=== PATIENT | female | born 1965 | race Caucasian/White ===

== ENCOUNTER 2016-06-23 18:12 | Emergency (ER) | payer BC ==
[~2016-06-23] VITALS: Ht 154.9 cm; Wt 116.8 kg
[~2016-06-23 18:12] MED LIST: ADVAIR 100/501 DISK IH; ADVAIR 250/501 DISK; ALDACTONE50 MG PO; AMARYL2 MG PO; ASPIR 8181 M1 PO; BUSPAR10 MG PO; BUSPIRONE HCL10 MG PO; CHERATUSSIN AC473 ML PO; CLINDAMYCIN HC300 MG PO; COLACE100 MG PO; DOXYCYCLINE MO100 M1 PO; DUONEB 2.5-0.5 M3 ML AEROSOL; DUONEB 2.5-0.5 M3 ML IH; ELAVIL25 MG PO; FERGON324 MG PO; FERROUS SULFAT325 MG PO; FLEXERIL10 MG PO; FLUTICASONE PRO16 GM BOTH NARES; GLUCOPHAGE1000 MG PO; IRON325 M1 PO; LEVOFLOXACIN750 MG PO; LO-DOSE ASPIRIN81 M1 PO; LOPRESSOR; METAXALONE800 MG PO; METFORMIN HCL1000 M1 PO; METFORMIN HCL1000 MG PO; METOPROLOL TART25 MG PO; METOPROLOL TART50 MG PO; MULTIVITAMIN1 EAC2 PO; NAPROSYN250 MG PO; NAPROXEN500 MG PO; NEOMYCIN-POLYMY10 ML BOTH EARS; NEOMYCIN-POLYMYXIN-H; OMEPRAZOLE20 MG PO; OMEPRAZOLE40 M1 PO; PERCOCET 5/31 TABLET PO; PREDNISONE20 MG PO; PRILOSEC20 MG PO; PROZAC40 MG PO; SALINE NASAL SP45 ML BOTH NARES; SERTRALINE HCL100 MG PO; SPIRONOLACTONE50 MG PO; STOOL SOFTENER100 M1 PO; STOOL SOFTENER100 MG PO; TOPROL XL25 MG PO; TRI-SPRINTEC1 EACH PO; TYLENOL COLD H1 EAC5 PO; VENTOLIN HFA18 GM IH; ZOLOFT100 MG PO; ZYRTEC10 M2 PO
[2016-06-23 19:13] LABS: HEMATOCRIT 43.9 % (36.0-46.0); MCH 27.8 PG (29.0-34.0); MCV 84.3 FL (83-99); MEAN PLAT.VOLUME 11.3 uM^3 (9.5-12.4); PLATELET COUNT 193 K/uL (156-360); RBC DIS.WIDTH-CV 14.5 % (11.8-14.6); RBC DIS.WIDTH-SD 44.3 % (39-53); RED BLOOD COUNT 5.21 M/uL (3.80-5.20); WHITE BLOOD COUNT 8.4 K/uL (4.1-10.2)
[2016-06-23 19:22] LABS: CHLORIDE 104 mEq/L (99-109); POTASSIUM 4.3 mEq/L (3.7-5.4); SODIUM 136 mEq/L (136-147)
[2016-06-23 19:24] LABS: GLUCOSE 112 mg/dL (70-99)
[2016-06-23 19:25] LABS: ANION GAP 11 MEQ/L (2-14)
[2016-06-23 19:28] LABS: GFR ESTIMATE (CALCULATED) > 59 mL/min/
[2016-06-23 19:29] LABS: UREA NITROGEN (BUN) 8 mg/dL (9-23)
[2016-06-23 19:35] LABS: TROP-I INTERPRETATION NEGATIVE; TROPONIN-I < 0.01 ng/mL (0.0-0.30)
[2016-06-23] MEDS ORDERED: VALIUM5 MG PO (20:21)
[2016-06-23] MEDS ORDERED: NAPROSYN500 MG PO (20:21)
[2016-06-23] MEDS ORDERED: ULTRAM50 MG PO (20:21)
[2016-06-23 20:35] VITALS: BP 147/110
== END 2016-06-23 20:37 | disposition home or self-care (01) ==
LOC: EME 18:12
PROVIDERS: Physician Assistant
DX: S29.011A Strain of muscle and tendon of front wall of thorax, initial encounter (principal); E11.9 Type 2 diabetes mellitus without complications; K21.9 Gastro-esophageal reflux disease without esophagitis; Z86.14 Personal history of Methicillin resistant Staphylococcus aureus infection; Z79.84 Long term (current) use of oral hypoglycemic drugs; Z79.82 Long term (current) use of aspirin
CPT/HCPCS: 71020; 80048; 84484; 85027; 93005; 99281; 99285; J3010

== ENCOUNTER → 2016-07-06 | Outpatient (CLI) | payer BC ==
[~2016-07-06] VITALS: Ht 167.6 cm; Wt 120.6 kg
[~2016-07-06] MED LIST changes: +NAPROSYN500 MG PO; +ULTRAM50 MG PO; +VALIUM5 MG PO
[2016-07-06 09:36] LABS: POINT-OF-CARE METER ID UU13113694
== END | disposition home or self-care (01) ==
LOC: AMB 06-15 08:00
PROVIDERS: Internal Medicine
PROC: 0DB68ZX Excision of Stomach, Via Natural or Artificial Opening Endoscopic, Diagnostic (ICD-10-PCS; principal; 2016-07-06)
DX: K29.70 Gastritis, unspecified, without bleeding (principal); K21.9 Gastro-esophageal reflux disease without esophagitis; Z80.0 Family history of malignant neoplasm of digestive organs; E11.9 Type 2 diabetes mellitus without complications; E78.5 Hyperlipidemia, unspecified; E66.9 Obesity, unspecified; Z68.41 Body mass index [BMI] 40.0-44.9, adult; Z86.14 Personal history of Methicillin resistant Staphylococcus aureus infection; Z82.49 Family history of ischemic heart disease and other diseases of the circulatory system; Z82.5 Family history of asthma and other chronic lower respiratory diseases; Z80.8 Family history of malignant neoplasm of other organs or systems; Z88.0 Allergy status to penicillin; Z88.1 Allergy status to other antibiotic agents; Z88.5 Allergy status to narcotic agent; Z88.8 Allergy status to other drugs, medicaments and biological substances
CPT/HCPCS: 82948; 88305; 88342 TC; J2250

== ENCOUNTER → 2016-12-18 | Outpatient (CLI) | payer BC ==
[~2016-12-18] MED LIST changes: +DOXYCYCLINE HY100 M3 PO; +OCUFLOX 0.100 DROP/5 BOTH EYES; +PROAIR HFA8.5 GM IH
== END | disposition home or self-care (01) ==
LOC: CDC 11:16
DX: Z01.810 Encounter for preprocedural cardiovascular examination (principal)
CPT/HCPCS: 93000

== ENCOUNTER 2016-12-22 09:14 | Inpatient (IN) | payer BC ==
[~2016-12-22] VITALS: Ht 154.9 cm; Wt 115.9 kg
[~2016-12-22 09:14] MED LIST changes: -DOXYCYCLINE HY100 M3 PO; -OCUFLOX 0.100 DROP/5 BOTH EYES; -PROAIR HFA8.5 GM IH
[2016-12-22 10:17] LABS: EOSINOPHIL (%) 1.7 % (0-5); EOSINOPHIL COUNT 0.1 K/uL (0-0.3); HEMATOCRIT 43.6 % (36.0-46.0); IMMATURE GRANULOCYTE (%) 0.7 % (0.0-0.7); IMMATURE GRANULOCYTE COUNT 0.1 K/uL; LYMPHOCYTE COUNT 2.2 K/uL (1.0-2.8); MCH 27.6 PG (29.0-34.0); MCHC 32.8 G/DL (30.0-36.0); MEAN PLAT.VOLUME 11.8 uM^3 (9.5-12.4); MONOCYTE (%) 6.9 % (3-12); MONOCYTE COUNT 0.5 K/uL (0-0.8); NEUTROPHIL (%) 58.5 % (45-76); PLATELET COUNT 172 K/uL (156-360); RBC DIS.WIDTH-CV 14.2 % (11.8-14.6); RBC DIS.WIDTH-SD 42.9 % (39-53); RED BLOOD COUNT 5.19 M/uL (3.80-5.20); WHITE BLOOD COUNT 6.9 K/uL (4.1-10.2)
[2016-12-22 10:29] LABS: CHLORIDE 103 mEq/L (99-109); POTASSIUM 4.4 mEq/L (3.7-5.4); SODIUM 135 mEq/L (136-147)
[2016-12-22 10:30] LABS: GLUCOSE 209 mg/dL (70-99)
[2016-12-22 10:32] LABS: ANION GAP 14 MEQ/L (2-14)
[2016-12-22 10:34] LABS: GFR ESTIMATE (CALCULATED) > 59 mL/min/
[2016-12-22 10:35] LABS: UREA NITROGEN (BUN) 10 mg/dL (9-23)
[2016-12-22] MEDS ORDERED: BUSPAR10 MG PO (14:20)
[2016-12-22] MEDS ORDERED: DOXYCYCLINE HY100 M3 PO (14:23)
[2016-12-22] MEDS ORDERED: OCUFLOX 0.100 DROP/5 BOTH EYES (14:24)
[2016-12-22] MEDS ORDERED: DUONEB 2.5-0.5 M3 ML AEROSOL (14:25)
[2016-12-22] MEDS ORDERED: PROAIR HFA8.5 GM IH (14:25)
[2016-12-22 21:53] LABS: METH RESISTANT S AUREUS PCR POSITIVE (NEGATIVE)
[2016-12-22 22:11] LABS: PROBE CHECK PASS
[2016-12-22 22:39] LABS: POINT-OF-CARE METER ID UU13113725
[2016-12-23 00:09] VITALS: BP 160/94
[2016-12-23 05:54] LABS: HEMATOCRIT 39.6 % (36.0-46.0); MCH 27.7 PG (29.0-34.0); MCHC 32.6 G/DL (30.0-36.0); MEAN PLAT.VOLUME 11.4 uM^3 (9.5-12.4); PLATELET COUNT 167 K/uL (156-360); RBC DIS.WIDTH-CV 14.3 % (11.8-14.6); RBC DIS.WIDTH-SD 43.6 % (39-53); RED BLOOD COUNT 4.66 M/uL (3.80-5.20); WHITE BLOOD COUNT 8.3 K/uL (4.1-10.2)
[2016-12-23 06:26] LABS: ANION GAP 8 MEQ/L (2-14); CHLORIDE 102 MEQ/L (99-109); GFR ESTIMATE (CALCULATED) > 59 mL/min/; GLUCOSE 245 mg/dL (70-99); POTASSIUM 4.8 MEQ/L (3.7-5.4); SAMPLE HEMOLYSIS CHECK 1; SAMPLE ICTERIC CHECK 0; SAMPLE LIPEMIA CHECK 0; SODIUM 134 MEQ/L (136-147); UREA NITROGEN (BUN) 15 mg/dL (9-23)
[2016-12-23 07:45] VITALS: BP 161/89
[2016-12-23 11:47] LABS: POINT-OF-CARE METER ID UU13113725
[2016-12-23 15:35] VITALS: BP 130/80
[2016-12-23 16:35] LABS: POINT-OF-CARE METER ID UU13113725
[2016-12-23 23:49] VITALS: BP 142/79
[2016-12-24 03:43] LABS: HEMATOCRIT 38.7 % (36.0-46.0); MCHC 33.1 G/DL (30.0-36.0); MCV 84.7 FL (83-99); MEAN PLAT.VOLUME 11.5 uM^3 (9.5-12.4); PLATELET COUNT 169 K/uL (156-360); RBC DIS.WIDTH-CV 14.5 % (11.8-14.6); RBC DIS.WIDTH-SD 43.8 % (39-53); RED BLOOD COUNT 4.57 M/uL (3.80-5.20); WHITE BLOOD COUNT 7.8 K/uL (4.1-10.2)
[2016-12-24 03:57] LABS: CHLORIDE 107 mEq/L (99-109); POTASSIUM 4.6 mEq/L (3.7-5.4); SODIUM 139 mEq/L (136-147)
[2016-12-24 03:59] LABS: GLUCOSE 179 mg/dL (70-99)
[2016-12-24 04:01] LABS: ANION GAP 9 MEQ/L (2-14)
[2016-12-24 04:03] LABS: GFR ESTIMATE (CALCULATED) > 59 mL/min/
[2016-12-24 04:04] LABS: UREA NITROGEN (BUN) 13 mg/dL (9-23)
[2016-12-24 06:38] LABS: POINT-OF-CARE METER ID UU13113725
[2016-12-24 08:43] VITALS: BP 164/97
[2016-12-24 15:32] VITALS: BP 135/88
[2016-12-24 16:15] LABS: POINT-OF-CARE METER ID UU13113725
[2016-12-24] MEDS ORDERED: DOXYCYCLINE HY100 M3 PO (20:40)
[2016-12-24] MEDS ORDERED: SULFACETAMIDE S15 ML BOTH EYES (20:44)
[2016-12-25 00:41] VITALS: BP 120/61
[2016-12-25 05:55] LABS: POINT-OF-CARE METER ID UU13113725
[2016-12-25 07:48] VITALS: BP 149/68
== END 2016-12-25 17:10 | disposition home or self-care (01) | DRG 603 ==
LOC: EME 09:14 → EDOF 13:34 → 5EAST 13:34 → ENRESERV 13:35 → 5EAST 15:47
PROVIDERS: Emergency Medicine; Internal Medicine
DX: L03.213 Periorbital cellulitis (principal); H00.034 Abscess of left upper eyelid; H10.89 Other conjunctivitis; H01.002 Unspecified blepharitis right lower eyelid; H01.005 Unspecified blepharitis left lower eyelid; L03.211 Cellulitis of face; E11.9 Type 2 diabetes mellitus without complications; F32.9 Major depressive disorder, single episode, unspecified; F41.9 Anxiety disorder, unspecified; J45.909 Unspecified asthma, uncomplicated; G43.909 Migraine, unspecified, not intractable, without status migrainosus; I10 Essential (primary) hypertension; K21.9 Gastro-esophageal reflux disease without esophagitis; E66.9 Obesity, unspecified; Z68.42 Body mass index [BMI] 45.0-49.9, adult; Z79.4 Long term (current) use of insulin; Z79.84 Long term (current) use of oral hypoglycemic drugs; Z88.0 Allergy status to penicillin; Z86.14 Personal history of Methicillin resistant Staphylococcus aureus infection; Z79.82 Long term (current) use of aspirin
CPT/HCPCS: 70487; 80048; 80202; 82948; 83605; 85025; 85027; 87040; 87641; 99281; 99285; J1200; J1650; J1815; J1885; J2270; J2930; J3370; J7030; J7040; J7120

== ENCOUNTER 2017-03-07 10:12 | Emergency (ER) | payer BC ==
[~2017-03-07] VITALS: Ht 154.9 cm; Wt 114.3 kg
[~2017-03-07 10:12] MED LIST changes: +DOXYCYCLINE HY100 M3 PO; +JANUVIA25 MG PO; +LISINOPRIL5 MG PO; +OCUFLOX 0.100 DROP/5 BOTH EYES; +PROAIR HFA8.5 GM IH; +SULFACETAMIDE S15 ML BOTH EYES
[2017-03-07 10:58] LABS: EOSINOPHIL (%) 1.6 % (0-5); EOSINOPHIL COUNT 0.1 K/uL (0-0.3); HEMATOCRIT 44.5 % (36.0-46.0); IMMATURE GRANULOCYTE (%) 0.6 % (0.0-0.7); INSTRUMENT ABS NEUTROPHIL CT 4.4 K/uL; LYMPHOCYTE COUNT 1.9 K/uL (1.0-2.8); MCH 28.4 PG (29.0-34.0); MCHC 32.8 G/DL (30.0-36.0); MCV 86.6 FL (83-99); MEAN PLAT.VOLUME 12.1 uM^3 (9.5-12.4); MONOCYTE (%) 7.9 % (3-12); MONOCYTE COUNT 0.6 K/uL (0-0.8); NEUTROPHIL (%) 62.3 % (45-76); NEUTROPHIL COUNT 4.4 K/uL (1.8-6.4); PLATELET COUNT 164 K/uL (156-360); RBC DIS.WIDTH-CV 13.9 % (11.8-14.6); RBC DIS.WIDTH-SD 44.1 % (39-53); RED BLOOD COUNT 5.14 M/uL (3.80-5.20)
[2017-03-07 11:06] LABS: CHLORIDE 104 mEq/L (99-109); POTASSIUM 4.3 mEq/L (3.7-5.4); SODIUM 137 mEq/L (136-147)
[2017-03-07 11:08] LABS: GLUCOSE 228 mg/dL (70-99)
[2017-03-07 11:09] LABS: ANION GAP 12 MEQ/L (2-14)
[2017-03-07 11:10] LABS: TOTAL BILIRUBIN 0.6 mg/dL (0.0-1.0)
[2017-03-07 11:11] LABS: ALKALINE PHOSPHATASE 108 IU/L (3-129)
[2017-03-07 11:12] LABS: GFR ESTIMATE (CALCULATED) > 59 mL/min/
[2017-03-07 11:13] LABS: UREA NITROGEN (BUN) 12 mg/dL (9-23)
[2017-03-07] MEDS ORDERED: BACTRIM,SEPT1 TABLET PO (11:37)
[2017-03-07] MEDS ORDERED: AVIDOXY100 MG PO (11:37)
[2017-03-07] MEDS ORDERED: ULTRAM50 MG PO (11:38)
[2017-03-07 13:18] VITALS: BP 126/85
== END 2017-03-07 13:19 | disposition home or self-care (01) ==
LOC: EME 10:12
PROVIDERS: Emergency Medicine
PROC: 089 Eye, Drainage (ICD-10-PCS; principal; 2017-03-07)
DX: H00.034 Abscess of left upper eyelid (principal); E11.9 Type 2 diabetes mellitus without complications; K21.9 Gastro-esophageal reflux disease without esophagitis; F41.9 Anxiety disorder, unspecified; F32.9 Major depressive disorder, single episode, unspecified; Z86.14 Personal history of Methicillin resistant Staphylococcus aureus infection; Z79.84 Long term (current) use of oral hypoglycemic drugs; Z79.82 Long term (current) use of aspirin; Z88.5 Allergy status to narcotic agent; Z88.1 Allergy status to other antibiotic agents; Z88.0 Allergy status to penicillin; Z88.8 Allergy status to other drugs, medicaments and biological substances
CPT/HCPCS: 80053; 85025; 99281; 99284; J2405; J3010; J3370; J7030

== ENCOUNTER 2017-03-12 20:40 | Inpatient (IN) | payer OTHER ==
[~2017-03-12] VITALS: Ht 154.9 cm; Wt 114.3 kg
[~2017-03-12 20:40] MED LIST changes: +AVIDOXY100 MG PO; +BACTRIM,SEPT1 TABLET PO
[2017-03-12] MEDS ORDERED: LIPITOR40 MG PO (21:40)
[2017-03-12] MEDS ORDERED: AMARYL2 MG PO (21:48)
[2017-03-12 21:52] LABS: BASOPHIL COUNT 0.1 K/uL (0-0.1); EOSINOPHIL (%) 1.7 % (0-5); EOSINOPHIL COUNT 0.2 K/uL (0-0.3); IMMATURE GRANULOCYTE (%) 0.5 % (0.0-0.7); IMMATURE GRANULOCYTE COUNT 0.1 K/uL; INSTRUMENT ABS NEUTROPHIL CT 6.4 K/uL; LYMPHOCYTE COUNT 2.6 K/uL (1.0-2.8); MCH 28.9 PG (29.0-34.0); MCHC 34.2 G/DL (30.0-36.0); MCV 84.6 FL (83-99); MEAN PLAT.VOLUME 11.6 uM^3 (9.5-12.4); MONOCYTE (%) 5.9 % (3-12); MONOCYTE COUNT 0.6 K/uL (0-0.8); NEUTROPHIL COUNT 6.4 K/uL (1.8-6.4); PLATELET COUNT 202 K/uL (156-360); RBC DIS.WIDTH-CV 13.6 % (11.8-14.6); RBC DIS.WIDTH-SD 42.1 % (39-53); RED BLOOD COUNT 5.08 M/uL (3.80-5.20); WHITE BLOOD COUNT 9.8 K/uL (4.1-10.2)
[2017-03-12 22:00] LABS: CHLORIDE 106 mEq/L (99-109); INTERNAL CONTROL VALID? YES; POTASSIUM 3.9 mEq/L (3.7-5.4); SODIUM 138 mEq/L (136-147)
[2017-03-12 22:02] LABS: GLUCOSE 185 mg/dL (70-99)
[2017-03-12 22:03] LABS: ANION GAP 11 MEQ/L (2-14)
[2017-03-12 22:05] LABS: AMPHETAMINE NEGATIVE (500 ng/mL); BARBITURATES NEGATIVE (200 ng/mL); BENZODIAZEPINES NEGATIVE (150 ng/mL); COCAINE NEGATIVE (150 ng/mL); GFR ESTIMATE (CALCULATED) 56 mL/min/; INTERNAL CONTROLS VALID? YES; METHADONE NEGATIVE (200 ng/mL); METHAMPHETAMINE NEGATIVE (500 ng/mL); OPIATES (MORPHINE) NEGATIVE (100 ng/mL); OXYCODONE NEGATIVE (100 ng/mL); PHENCYCLIDINE NEGATIVE (25 ng/mL); PROPOXYPHENE NEGATIVE (300 ng/mL); SERUM ETHYL ALCOHOL < 10 mg/dL; THC CANNABINOIDS NEGATIVE (50 ng/mL); TRICYCLIC ANTIDEPRESSANTS NEGATIVE (300 ng/mL)
[2017-03-12 22:07] LABS: UREA NITROGEN (BUN) 13 mg/dL (9-23)
[2017-03-12 22:09] LABS: SALICYLATE < 5.0 MG/DL (15-30)
[2017-03-13 10:47] VITALS: BP 130/78
[2017-03-13 12:16] LABS: POINT-OF-CARE METER ID UU14188576; POINT-OF-CARE USER ID BHSTSA
[2017-03-13 15:38] VITALS: BP 137/74
[2017-03-13 16:43] LABS: POINT-OF-CARE METER ID UU14188576; POINT-OF-CARE USER ID BHSMEW
[2017-03-13 20:29] LABS: POINT-OF-CARE METER ID UU14188576; POINT-OF-CARE USER ID BHSMEW
[2017-03-13 20:51] LABS: POINT-OF-CARE METER ID UU14188576; POINT-OF-CARE USER ID BHSMEW
[2017-03-14 02:13] LABS: POINT-OF-CARE METER ID UU14188576
[2017-03-14 06:18] LABS: POINT-OF-CARE METER ID UU14188576
[2017-03-14 07:54] VITALS: BP 139/67
[2017-03-14 12:27] LABS: POINT-OF-CARE METER ID UU14188576; POINT-OF-CARE USER ID BHSTSA
[2017-03-14 16:01] VITALS: BP 110/60
[2017-03-14 16:51] LABS: POINT-OF-CARE METER ID UU14188576; POINT-OF-CARE USER ID BHSMEW
[2017-03-14 21:57] LABS: POINT-OF-CARE METER ID UU14188576; POINT-OF-CARE USER ID BHSMEW
[2017-03-15 07:51] VITALS: BP 124/78
[2017-03-15 08:09] LABS: POINT-OF-CARE METER ID UU13113702; POINT-OF-CARE USER ID BHSTSA
[2017-03-15] MEDS ORDERED: FLUOXETINE HCL20 MG PO (10:22)
== END 2017-03-15 11:58 | disposition home or self-care (01) | DRG 880 ==
LOC: EME 20:40 → 1WEST 03-13 08:34 → EDOF 03-13 08:34 → ENRESERV 03-13 10:10 → 1WEST 03-13 10:28
PROVIDERS: Emergency Medicine; Psychiatry & Neurology Psychiatry
DX: F44.1 Dissociative fugue (principal); Z68.42 Body mass index [BMI] 45.0-49.9, adult; R45.851 Suicidal ideations; F34.1 Dysthymic disorder; E11.9 Type 2 diabetes mellitus without complications; E78.00 Pure hypercholesterolemia, unspecified; F29 Unspecified psychosis not due to a substance or known physiological condition; H00.034 Abscess of left upper eyelid; I10 Essential (primary) hypertension; K21.9 Gastro-esophageal reflux disease without esophagitis; X78.8XXA Intentional self-harm by other sharp object, initial encounter; R45.850 Homicidal ideations; S51.812A Laceration without foreign body of left forearm, initial encounter; G43.909 Migraine, unspecified, not intractable, without status migrainosus; E66.01 Morbid (severe) obesity due to excess calories; Z86.14 Personal history of Methicillin resistant Staphylococcus aureus infection; Z79.84 Long term (current) use of oral hypoglycemic drugs; Z88.0 Allergy status to penicillin; Z88.5 Allergy status to narcotic agent; Z88.6 Allergy status to analgesic agent; Z88.1 Allergy status to other antibiotic agents; Y92.009 Unspecified place in unspecified non-institutional (private) residence as the place of occurrence of the external cause
CPT/HCPCS: 80048; 82948; 84703; 85025; 90837; 94640; 94640 76; 97150 GO; 99202; 99281; 99285; G0480; J1630; J1815; J2060; J2250